=== PATIENT | female | born 1990 | race Caucasian/White ===

== ENCOUNTER → 2020-02-09 | Outpatient (CLI) | payer OTHER | END | disposition home or self-care (01) | LOC: RX STUDY 09:09 | DX: N84.0 Polyp of corpus uteri (principal); N97.1 Female infertility of tubal origin ==

== ENCOUNTER 2020-06-21 07:00 | Day surgery (SDC) | payer OTHER | END 2020-06-21 09:00 | disposition home or self-care (01) | LOC: AMB-ENDOS | PROVIDERS: ATTEND Surgery | DX: K62.89 Other specified diseases of anus and rectum (principal); Z20.822 Contact with and (suspected) exposure to COVID-19 ==